=== PATIENT | male | born 1950 | race Caucasian/White ===

== ENCOUNTER → 2020-09-12 | Outpatient (CLI) | payer MEDICARE | END | disposition home or self-care (01) | LOC: STAR 12:19 | PROVIDERS: ATTEND Anesthesiology | DX: Z20.828 Contact with and (suspected) exposure to other viral communicable diseases (principal) | CPT/HCPCS: 87635 ==

== ENCOUNTER 2020-09-26 08:31 | Outpatient (CLI) | payer MEDICARE ==
[~2020-09-26 08:31] MED LIST: ATOR20TA86 PO; DICL100G29 TP; DOCU-131 PO; DUTA0.5C16 PO; MELO7.5T31 PO; OXYC5TAB3 PO; TAMS-11 PO
== END 2020-09-26 23:59 | disposition home or self-care (01) ==
LOC: RAD 08:31
PROVIDERS: ATTEND Urology
DX: C61 Malignant neoplasm of prostate (principal); Z79.899 Other long term (current) drug therapy; Z72.89 Other problems related to lifestyle
CPT/HCPCS: 51600; 74430; Q9958